=== PATIENT | male | born 1955 | race Caucasian/White ===

== ENCOUNTER 2017-01-07 13:28 | Outpatient (CLI) | payer OTHER | END 2017-01-07 13:29 | disposition home or self-care (01) | LOC: RT 13:28 | PROVIDERS: ATTEND Internal Medicine | DX: R06.00 Dyspnea, unspecified (principal) | CPT/HCPCS: 94010 ==

== ENCOUNTER 2017-11-17 14:43 | Outpatient (CLI) | payer OTHER ==
--- NOTE | 2017-11-18 13:07 | XRAY Report ---
LEFT HAND: 11/17/2017 HISTORY: Left thumb pain. COMPARISON: 02/13/2013 left hand images. FINDINGS: Scattered interphalangeal joint degenerative changes of the fingers and thumb have progressed slightly since 2013. Minor degenerative changes at the metacarpophalangeal and first CHCF joints. No evidence of fracture, malalignment, or bone destruction. IMPRESSION: MILD PROGRESSIVE DEGENERATIVE CHANGES LEFT HAND COMPARED WITH 2013 WITHOUT SUPERIMPOSED ACUTE FINDINGS. TD: 11/18/2017 13:05 [facility]
--- NOTE | 2017-11-18 13:12 | XRAY Report ---
LEFT WRIST, FOUR VIEWS: 11/17/2017 HISTORY: Pain. COMPARISON: 02/13/2013. FINDINGS: There has been mild progressive degenerative change at the radiocarpal, ulnar carpal and radial ulnar articulations. Mild first metacarpal-carpal and proximal carpal row degenerative changes. No evidence of fracture or malalignment. No radiopaque foreign body. IMPRESSION: PROGRESSIVE LEFT WRIST DEGENERATIVE CHANGE SINCE 2012 WITHOUT SUPERIMPOSED ACUTE FINDINGS. TD: 11/18/2017 13:10 [facility]
== END 2017-11-17 14:44 | disposition home or self-care (01) ==
LOC: DI.S 14:43
PROVIDERS: ATTEND Nurse Practitioner Family
DX: M19.032 Primary osteoarthritis, left wrist (principal); M19.042 Primary osteoarthritis, left hand

== ENCOUNTER 2023-10-08 14:38 | Outpatient (CLI) | payer MEDICARE, OTHER | END 2023-10-08 14:39 | disposition short-term general hospital (02) | LOC: EMS 14:38 | DX: R00.0 Tachycardia, unspecified (principal); R07.89 Other chest pain; R42 Dizziness and giddiness; R23.1 Pallor; R14.2 Eructation; R53.1 Weakness | CPT/HCPCS: A0425; A0427 ==

== ENCOUNTER 2023-11-12 03:59 | Outpatient (CLI) | payer MEDICARE | END 2023-11-12 23:59 | disposition critical access hospital (66) | LOC: EMS 03:59 | DX: R07.89 Other chest pain (principal); R23.1 Pallor; R61 Generalized hyperhidrosis; R42 Dizziness and giddiness | CPT/HCPCS: A0425; A0429 ==

== ENCOUNTER 2023-11-12 04:25 | Emergency (ER) | payer MEDICARE ==
--- NOTE | 2023-11-12 04:39 | ED Physician Documentation ---
History of Present Illness - Stated complaint Stated Complaint: CHEST PX - Chief complaint Chief Complaint: Cardiac - History obtained from History obtained from: Patient - Additonal information Additional information: 67yM with pmh svt, cad s/p 2 stents last month at [facility] ([facility] Dr. Mccabe) p/w chest pain waking him from sleep around 3am, resolving s/p 324 asa and 1 sublingual nitroglycerin. patient is now asymptomatic. he was feeling normal yesterday Review of Systems Constitutional: denies: Fever, Chills Cardiac: reports: Chest pain / pressure. denies: Palpitations Respiratory: denies: Dyspnea GI: denies: Abdominal Pain, Nausea PD PAST MEDICAL HISTORY - Past Medical History Psych: Anxiety - Past Surgical History Past Surgical History: Yes - Allergies Allergies/Adverse Reactions: Allergies Allergy/AdvReac Type Severity Reaction Status Date / Time No Known Drug Allergies Allergy Verified 11/12/23 04:30 - Social History Does the pt smoke?: No Smoking Status: Never smoker Does the pt drink ETOH?: No Does the pt have substance abuse?: No - Immunizations Immunizations are current?: Yes PD ED PE NORMAL - Vitals Vital signs reviewed: Yes - General General: Alert and oriented X 3, No acute distress, Well developed/nourished - HEENT HEENT: Atraumatic, PERRL, EOMI, Moist mucous membranes, Pharynx benign - Cardiac Cardiac: RRR - Respiratory Respiratory: No respiratory distress, Clear bilaterally - Abdomen Abdomen: Non tender, Non distended - Derm Derm: Normal color, Warm and dry - Extremities Extremities: No deformity, No edema Results - Vitals Vitals: Vital Signs - 24 hr 11/12/23 04:31 Temperature 36.4 C L Heart Rate 52 L Respiratory 12 Rate Blood Pressure 108/73 O2 Saturation 95 Oxygen O2 Source Room air - EKG (time done) 0431 EKG releavant findings:: EKG personally interpreted by author of this note. Relevant findings are: Rate: Rate (enter#) (52) Rhythm: NSR [place]: Normal Intervals: Normal NH QRS: Normal Ischemia: Normal ST segments - Labs Labs: Laboratory Tests 11/12/23 11/12/23 11/12/23 04:30 04:30 06:02 WBC 6.0 RBC 4.46 L Hgb 13.6 L Hct 39.8 L MCV 89.2 MCH 30.5 MCHC 34.2 RDW 13.0 Plt Count 148 MPV 10.5 Neut # (Auto) 3.2 Lymph # (Auto) 1.9 [place] # (Auto) 0.6 Eos # (Auto) 0.1 Baso # (Auto) 0.0 Absolute Nucleated RBC 0.00 Nucleated RBC % 0.0 Sodium 138 Potassium 4.0 Chloride 106 Carbon Dioxide 26 Anion Gap 6.0 BUN 14 Creatinine 1.0 Estimated GFR (MDRD) 74 L Glucose 137 H Calcium 9.3 Total Bilirubin 0.6 AST 18 ALT 28 Alkaline Phosphatase 71 Troponin I High Sens 3.8 7.5 Total Protein 6.3 L Albumin 3.8 Globulin 2.5 Albumin/Globulin Ratio 1.5 Lipase 20 PD Medical Decision Making - ED course ED course: 67yM with recent stent placement [facility] last month p/w brief resolved episode of chest pain, improved s/p nitro and asa. patient now asymptomatic with normal ekg. plan to enact cbc, abdominal panel, trop, cxr, and then repeat troponin after a couple hours. If all is negative he can f/u outpatient with his color buffer. Return precautions given. Departure - Departure Disposition: Home, Self Care Clinical Impression: Chest pain Condition: Stable Instructions: Angina Dc Comments: You were seen in the emergency department for chest pain that resolved after nitroglycerin. Your labwork, ekg, and chest xray uncovered no emergent issues. It looks like this was an episode of angina that resolved. Please follow-up with your color buffer Dr. Mccabe and return to the emergency department if you have any new or worsening symptoms or other concerns. Forms: PCP List
[2023-11-12 04:44] LABS: BASOPHILS % (AUTO) 0.7 %; EOSINOPHILS # (AUTO) 0.1 10^3/uL (0.0-0.7); HCT - HEMATOCRIT 39.8 % (42.0-52.0); HGB - HEMOGLOBIN 13.6 g/dL (14.0-18.0); LYMPHOCYTES # (AUTO) 1.9 10^3/uL (1.5-3.5); LYMPHOCYTES % (AUTO) 32.6 %; MEAN CORPUSCULAR HEMOGLOBIN 30.5 pg (27.0-31.0); MEAN CORPUSCULAR HGB CONC 34.2 g/dL (32.0-36.0); MEAN CORPUSCULAR VOLUME 89.2 fL (80.0-94.0); MEAN PLATELET VOLUME 10.5 fL (7.4-11.4); MONOCYTES # (AUTO) 0.6 10^3/uL (0.0-1.0); MONOCYTES % (AUTO) 10.3 %; NEUTROPHILS # (AUTO) 3.2 10^3/uL (1.5-6.6); NEUTROPHILS % (AUTO) 54.2 %; PLT - PLATELET COUNT 148 10^3/uL (130-450); RED BLOOD COUNT 4.46 10^6/uL (4.70-6.10)
[2023-11-12 05:06] LABS: TROPONIN I HIGH SENSITIVITY 3.8 ng/L (2.3-19.7)
[2023-11-12 05:07] LABS: ALBUMIN 3.8 g/dL (3.2-5.5); ALBUMIN/GLOBULIN RATIO 1.5 (1.0-2.2); BILIRUBIN,TOTAL 0.6 mg/dL (0.2-1.0); CALCIUM 9.3 mg/dL (8.5-10.3); TOTAL PROTEIN 6.3 g/dL (6.4-8.9)
[2023-11-12 06:55] VITALS: BP 113/70; O2SAT 99
--- NOTE | 2023-11-12 08:19 | XRAY Report ---
PROCEDURE: Chest 1V INDICATIONS: Chest pain TECHNIQUE: One view of the chest was acquired. COMPARISON: None. FINDINGS: Surgical changes and devices: None. Lungs and pleura: No pleural effusions or pneumothorax. Lungs are clear. Mediastinum: Mediastinal contours appear normal. Heart size is normal. Bones and chest wall: No suspicious bony lesions. Overlying soft tissues appear unremarkable. IMPRESSION: No acute cardiopulmonary process. Findings are concordant with preliminary interpretation provided by [facility]. Reviewed by: Sonu Sheridan MD on 11/12/2023 8:17 AM PDT Approved by: Sonu Sheridan MD on 11/12/2023 8:17 AM PDT Station ID: [id number]
== END 2023-11-12 07:00 | disposition home or self-care (01) ==
LOC: EDUNIT# → ED 04:25
DX: R07.9 Chest pain, unspecified (principal)
CPT/HCPCS: 36415; 80053; 83690; 84484; 85025; 93005; 99283; 99284